=== PATIENT | male | born 1950 | race Caucasian/White ===

== ENCOUNTER 2019-06-07 22:58 | Emergency (ER) | payer SELFPAY ==
[~2019-06-07] VITALS: Ht 172.7 cm; Wt 75.0 kg
[2019-06-07] MEDS ORDERED: SODIUM CHLORIDE 0.9% 1,000 ML IV ONE (23:28)
[2019-06-08 00:35] LABS: BASOPHILS % 0.5 % (0.0-2.0); EOSINOPHILS % 1.8 % (0.0-5.0); HEMOGLOBIN. 12.1 g/dL (14.0-18.0); LYMPHOCYTES % 19.7 % (20.0-50.0); MEAN CORPUSCULAR HEMOGLOBIN 29.3 pg (28.0-32.0); MEAN CORPUSCULAR VOLUME 87.7 fL (80.0-94.0); MEAN PLATELET VOLUME 7.5 fl (7.4-10.4); MONOCYTES % 7.5 % (2.0-8.0); NEUTROPHILS % 70.5 % (40.0-76.0); PLATELET 301 x1000/uL (130-400); RED BLOOD CELL COUNT 4.11 mill/uL (4.7-6.1); RED CELL DISTRIBUTION WIDTH 13.9 % (11.6-14.6)
[2019-06-08 00:46] LABS: CHLORIDE 105 mEq/L (98-107)
[2019-06-08 00:49] LABS: INR 1.1; PROTHROMBIN TIME 10.9 sec (9.6-11.0)
[2019-06-08] MEDS ORDERED: RISPERIDONE 1MG TABLET PO SCH (01:00)
[2019-06-08] MEDS ORDERED: INSULIN REGULAR (HUMULIN R) 300UNITS/3ML SUBCUT NR (01:15)
[2019-06-08] MEDS ORDERED: OLANZAPINE 10 MG/VIAL IM ONE (01:30)
[2019-06-08 06:20] LABS: CREATINE KINASE 90 IU/L (39-308)
[2019-06-08 06:21] LABS: CREATINE KINASE MB FRACTION 1.8 ng/mL (0.5-3.6)
[2019-06-08 07:30] VITALS: BP 107/61
== END 2019-06-08 10:07 | disposition left against medical advice (07) ==
LOC: ER 22:58 → EDBEDREQ 06-08 01:44 → EDBEDREQDT 06-08 01:44 → EDBEDREQTM 06-08 01:44 → ER 06-08 10:07 → CANBEDREQ 06-08 12:44
DX: R07.89 Other chest pain (principal); I10 Essential (primary) hypertension; E11.65 Type 2 diabetes mellitus with hyperglycemia; R06.02 Shortness of breath; F17.290 Nicotine dependence, other tobacco product, uncomplicated; Z86.73 Personal history of transient ischemic attack (TIA), and cerebral infarction without residual deficits
CPT/HCPCS: 36415; 71045; 80053; 82550; 82553; 83880; 84484; 85025; 85610; 93005; 96360; 96372; 99284; 99406; J1815; J3490; J7030